=== PATIENT | male | born 2005 | race Caucasian/White ===

== ENCOUNTER 2025-04-29 23:08 | Emergency (ER) | payer BC ==
[~2025-04-29] VITALS: Ht 177.8 cm; Wt 79.4 kg
[2025-04-29] MEDS ORDERED: ACET-3102 PO (23:19)
[2025-04-29] MEDS ORDERED: ONDA4TAB5 PO (23:19)
[2025-04-29] MEDS ORDERED: IBUP-1955 PO (23:19)
[2025-04-29 23:20] VITALS: BP 153/104; TEMP 98.6; O2SAT 99
== END 2025-04-29 23:30 | disposition home or self-care (01) ==
LOC: ER 23:13
DX: S09.90XA Unspecified injury of head, initial encounter (principal); X58.XXXA Exposure to other specified factors, initial encounter; Y93.89 Activity, other specified; Y92.000 Kitchen of unspecified non-institutional (private) residence as the place of occurrence of the external cause; Y99.8 Other external cause status